=== PATIENT | male | born 1990 | race African-American/Black ===

== ENCOUNTER 2017-06-06 16:11 | Inpatient (IN) | payer SELFPAY ==
[~2017-06-06] VITALS: Ht 180.3 cm; Wt 66.3 kg
[2017-06-06] MEDS ORDERED: HYDROCODONE/ACETAMINOPHEN 5/325MG TABLET PO ONE (22:45)
[2017-06-06 22:55] LABS: CLARITY URINE CLEAR (CLEAR); COLOR URINE YELLOW (YELLOW); GLUCOSE URINE NEGATIVE (NEGATIVE); KETONES URINE NEGATIVE (NEGATIVE); LEUKOCYTE ESTERASE URINE NEGATIVE (NEGATIVE); NITRITE URINE NEGATIVE (NEGATIVE); OCCULT BLOOD URINE NEGATIVE (NEGATIVE); PH URINE 5.5 (4.5-8.0); PROTEIN URINE NEGATIVE (NEGATIVE); SPECIFIC GRAVITY URINE 1.012 (1.005-1.030); UROBILINOGEN URINE 0.2 E.U./dL (0.2-1.0)
[2017-06-06 23:44] LABS: BASOPHILS % 0.6 % (0.0-2.0); EOSINOPHILS % 0.4 % (0.0-5.0); HEMATOCRIT. 39.8 % (42.0-52.0); HEMOGLOBIN. 13.4 g/dL (14.0-18.0); LYMPHOCYTES % 14.6 % (20.0-50.0); MEAN CORPUSCULAR VOLUME 95.4 fL (80.0-94.0); MEAN PLATELET VOLUME 8.9 fl (7.4-10.4); MONOCYTES % 8.2 % (2.0-8.0); NEUTROPHILS % 76.2 % (40.0-76.0); PLATELET 180 x1000/uL (130-400); RED BLOOD CELL COUNT 4.17 mill/uL (4.7-6.1); RED CELL DISTRIBUTION WIDTH 12.3 % (11.6-14.6)
[2017-06-07] MEDS ORDERED: CEFTRIAXONE SODIUM 250 MG/VIAL IM ONE (01:15)
[2017-06-07] MEDS ORDERED: AZITHROMYCIN 500 MG TABLET PO ONE (01:15)
[2017-06-07] MEDS ORDERED: METRONIDAZOLE 500 MG PREMIX 100 ML IV ONE (01:30)
[2017-06-07] MEDS ORDERED: LEVOFLOXACIN 500MG PREMIX 100 ML IV ONE (01:30)
[2017-06-07 02:02] LABS: CHLORIDE 103 mEq/L (98-107)
[2017-06-07 02:10] LABS: CARBON DIOXIDE 27 mEq/L (21-32)
[2017-06-07 06:45] VITALS: BP 100/54
[2017-06-07 08:10] VITALS: BP 100/61
[2017-06-07] MEDS ORDERED: ONDANSETRON HCL 4MG/2ML VIAL IV PRN (09:00)
[2017-06-07] MEDS ORDERED: DOCUSATE SODIUM 100MG CAPSULE PO PRN (09:00)
[2017-06-07] MEDS ORDERED: IPRATROPIUM/ALBUTEROL 0.5-3(2.5)MG/3ML NEB INH PRN (09:00)
[2017-06-07] MEDS ORDERED: ACETAMINOPHEN 650MG SUPP PR PRN (09:00)
[2017-06-07] MEDS ORDERED: MAGNESIUM/ALUMINUM HYDROXIDE/SIMETHICONE 30ML UDC PO PRN (09:00)
[2017-06-07] MEDS ORDERED: GUAIFENESIN 200MG/10ML SUGAR FREE UDC PO PRN (09:00)
[2017-06-07] MEDS ORDERED: ACETAMINOPHEN 650MG/20.3ML UDC GT PRN (09:00)
[2017-06-07] MEDS ORDERED: DIPHENHYDRAMINE 50MG/ML VIAL IV PRN (09:00)
[2017-06-07] MEDS ORDERED: CLONIDINE 0.1MG TABLET PO PRN (09:00)
[2017-06-07] MEDS ORDERED: NA PHOS,M-B/NA PHOS,DI-BA ENEMA 118ML PR PRN (09:00)
[2017-06-07] MEDS: HYDROCODONE/ACETAMINOPHEN 5/325MG TABLET PO PRN ×3 (09:41→17:37)
[2017-06-07] MEDS: ENOXAPARIN 40MG/0.4ML SYR SUBCUT SCH (09:41)
[2017-06-07] MEDS: SODIUM CHLORIDE 0.45% 1,000 ML IV SCH ×2 (10:27→23:30)
[2017-06-07] MEDS: METRONIDAZOLE 500 MG PREMIX 100 ML IV SCH ×2 (11:56→17:03)
[2017-06-07 12:30] VITALS: BP 120/0
[2017-06-07] MEDS: SODIUM CHLORIDE 0.9% INJ 3ML FLUSH IVF SCH ×2 (14:05→20:37)
[2017-06-07] MEDS: MORPHINE SULFATE 2 MG/ML CPJ (NOT FOR IM USE) IV PRN ×2 (14:36→20:38)
[2017-06-07 16:14] VITALS: BP 118/68
[2017-06-07 16:40] LABS: BASOPHILS % 0.5 % (0.0-2.0); EOSINOPHILS % 0.2 % (0.0-5.0); HEMATOCRIT. 41.1 % (42.0-52.0); HEMOGLOBIN. 13.9 g/dL (14.0-18.0); LYMPHOCYTES % 8.8 % (20.0-50.0); MEAN CORPUSCULAR HEMOGLOBIN 32.3 pg (28.0-32.0); MEAN CORPUSCULAR VOLUME 95.3 fL (80.0-94.0); MEAN PLATELET VOLUME 9.5 fl (7.4-10.4); MONOCYTES % 7.8 % (2.0-8.0); NEUTROPHILS % 82.7 % (40.0-76.0); PLATELET 182 x1000/uL (130-400); RED BLOOD CELL COUNT 4.31 mill/uL (4.7-6.1); RED CELL DISTRIBUTION WIDTH 11.8 % (11.6-14.6)
[2017-06-07 16:58] LABS: CARBON DIOXIDE 27 mEq/L (21-32); CHLORIDE 101 mEq/L (98-107); CREATINE KINASE 117 IU/L (39-308); TROPONIN I < 0.02 ng/mL (0.00-0.04)
[2017-06-07 20:00] VITALS: BP 131/79
[2017-06-07 23:30] LABS: CLARITY URINE CLEAR (CLEAR); COLOR URINE YELLOW (YELLOW); GLUCOSE URINE NEGATIVE (NEGATIVE); KETONES URINE TRACE (NEGATIVE); LEUKOCYTE ESTERASE URINE TRACE (NEGATIVE); NITRITE URINE NEGATIVE (NEGATIVE); OCCULT BLOOD URINE NEGATIVE (NEGATIVE); PH URINE 5.5 (4.5-8.0); PROTEIN URINE NEGATIVE (NEGATIVE); SPECIFIC GRAVITY URINE 1.018 (1.005-1.030)
[2017-06-07 23:59] LABS: *AMPHETAMINES SCREEN URINE NEGATIVE (NEGATIVE); *BARBITURATES SCREEN URINE NEGATIVE (NEGATIVE); *BENZODIAZEPINES SCREEN URINE NEGATIVE (NEGATIVE); *COCAINE SCREEN URINE NEGATIVE (NEGATIVE); CANNABINOID URINE SCREEN PRESUMTIVE POSITIVE (NEGATIVE); METHADONE URINE SCREEN NEGATIVE (NEGATIVE); OPIATES URINE SCREEN PRESUMTIVE POSITIVE (NEGATIVE); PHENCYCLIDINE URINE SCREEN NEGATIVE (NEGATIVE)
[2017-06-08] VITALS: BP 122/63
[2017-06-08 00:21] LABS: CREATINE KINASE 119 IU/L (39-308); TROPONIN I < 0.02 ng/mL (0.00-0.04)
[2017-06-08] MEDS: METRONIDAZOLE 500 MG PREMIX 100 ML IV SCH ×2 (00:46→11:05)
[2017-06-08] MEDS ORDERED: LEVOFLOXACIN 500MG PREMIX 100 ML IV SCH (02:00)
[2017-06-08] MEDS: MORPHINE SULFATE 2 MG/ML CPJ (NOT FOR IM USE) IV PRN (03:48)
[2017-06-08] MEDS ORDERED: LIDOCAINE HCL 1% 20ML VIAL (Pyxis) INJ INFIL NR (05:15)
[2017-06-08] MEDS: SODIUM CHLORIDE 0.9% INJ 3ML FLUSH IVF SCH (06:26)
[2017-06-08] MEDS ORDERED: DIATR MEGLU/DIATRIZOATE SOLN 30ML PO SCH (06:45)
[2017-06-08 08:00] VITALS: BP 135/96
[2017-06-08] MEDS: MORPHINE SULFATE 4 MG/ML CPJ (NOT FOR IM USE) IV PRN ×2 (08:20→13:03)
[2017-06-08] MEDS: ENOXAPARIN 40MG/0.4ML SYR SUBCUT SCH (08:23)
[2017-06-08 08:57] LABS: HEMATOCRIT. 44.9 % (42.0-52.0); HEMOGLOBIN. 15.2 g/dL (14.0-18.0); MEAN CORPUSCULAR HEMOGLOBIN 32.2 pg (28.0-32.0); MEAN CORPUSCULAR VOLUME 95.1 fL (80.0-94.0); MEAN PLATELET VOLUME 9.7 fl (7.4-10.4); PLATELET 208 x1000/uL (130-400); RED BLOOD CELL COUNT 4.72 mill/uL (4.7-6.1); RED CELL DISTRIBUTION WIDTH 12.1 % (11.6-14.6)
[2017-06-08 09:21] LABS: CARBON DIOXIDE 26 mEq/L (21-32); CHLORIDE 99 mEq/L (98-107); HDL CHOLESTEROL 59 mg/dL (40-59); LDL CHOLESTEROL 82 mg/dL (5-100)
[2017-06-08] MEDS ORDERED: METOCLOPRAMIDE HCL 10MG/2ML VIAL IV PRN (09:45)
[2017-06-08] MEDS ORDERED: DIATR MEGLU/DIATRIZOATE SOLN 30ML PO NR (09:45)
[2017-06-08 09:49] LABS: PLATELET ESTIMATE NORMAL
[2017-06-08] MEDS ORDERED: SODIUM CHLORIDE 0.9% 10ML VIAL ONE (11:51)
[2017-06-08] MEDS ORDERED: IOHEXOL-300 100 ML BOTTLE ONE (11:51)
[2017-06-08 13:03] VITALS: BP 117/51
== END 2017-06-08 16:30 | disposition left against medical advice (07) | DRG 254 ==
LOC: ER 16:12 → 5WST 06-07 02:11 → EDBEDREQ 06-07 02:15 → ENRESERV 06-07 04:16
PROVIDERS: ADMIT Family Medicine; ATTEND Family Medicine
DX: K61.0 Anal abscess (principal); E86.0 Dehydration; N41.9 Inflammatory disease of prostate, unspecified; K62.89 Other specified diseases of anus and rectum; D64.9 Anemia, unspecified; Z53.21 Procedure and treatment not carried out due to patient leaving prior to being seen by health care provider
CPT/HCPCS: 36415; 72192; 74177; 76857; 80053; 80061; 80305; 81001; 81003; 82550; 84484; 85025; 87040; 96365; 96366; 96368; 99285; A4216; J0696; J1650; J1956; J2270; J2405; J2765; J3490; Q9963; Q9967

== ENCOUNTER 2017-06-12 09:02 | Inpatient (IN) | payer MEDICAID, OTHER ==
[~2017-06-12] VITALS: Ht 182.9 cm; Wt 77.1 kg
[2017-06-12] MEDS ORDERED: SODIUM CHLORIDE 0.9% 1,000 ML IV ONE (11:04)
[2017-06-12] MEDS ORDERED: MORPHINE SULFATE 4 MG/ML CPJ (NOT FOR IM USE) IV STA (11:04)
[2017-06-12] MEDS ORDERED: ONDANSETRON HCL 4MG/2ML VIAL IV STA (11:04)
[2017-06-12 11:52] LABS: HEMATOCRIT. 42.2 % (42.0-52.0); HEMOGLOBIN. 13.8 g/dL (14.0-18.0); MEAN CORPUSCULAR HEMOGLOBIN 31.1 pg (28.0-32.0); MEAN CORPUSCULAR VOLUME 95.1 fL (80.0-94.0); MEAN PLATELET VOLUME 9.1 fl (7.4-10.4); PLATELET 245 x1000/uL (130-400); RED BLOOD CELL COUNT 4.44 mill/uL (4.7-6.1); RED CELL DISTRIBUTION WIDTH 12.2 % (11.6-14.6)
[2017-06-12 12:02] LABS: INR 1.3; PROTHROMBIN TIME 13.4 sec (9.4-11.6)
[2017-06-12 12:07] LABS: CARBON DIOXIDE 28 mEq/L (21-32); CHLORIDE 96 mEq/L (98-107)
[2017-06-12 12:48] LABS: CLARITY URINE CLEAR (CLEAR); COLOR URINE YELLOW (YELLOW); GLUCOSE URINE NEGATIVE (NEGATIVE); KETONES URINE NEGATIVE (NEGATIVE); LEUKOCYTE ESTERASE URINE TRACE (NEGATIVE); NITRITE URINE NEGATIVE (NEGATIVE); OCCULT BLOOD URINE NEGATIVE (NEGATIVE); PROTEIN URINE 1+ (NEGATIVE); SPECIFIC GRAVITY URINE 1.027 (1.005-1.030); UROBILINOGEN URINE 0.2 E.U./dL (0.2-1.0)
[2017-06-12 13:21] LABS: PLATELET ESTIMATE NORMAL
[2017-06-12] MEDS ORDERED: IOHEXOL-300 100 ML BOTTLE ONE (13:57)
[2017-06-12] MEDS ORDERED: SODIUM CHLORIDE 0.9% 10ML VIAL ONE (13:57)
[2017-06-12] MEDS ORDERED: ACETAMINOPHEN 325MG TABLET PO PRN (18:30)
[2017-06-12] MEDS ORDERED: MORPHINE SULFATE 4 MG/ML CPJ (NOT FOR IM USE) IV NR (18:30)
[2017-06-13] VITALS: BP 130/81
[2017-06-13] MEDS ORDERED: CLONIDINE 0.1MG TABLET PO PRN (00:45)
[2017-06-13] MEDS ORDERED: ONDANSETRON HCL 4MG/2ML VIAL IV PRN (00:45)
[2017-06-13] MEDS ORDERED: IPRATROPIUM/ALBUTEROL 0.5-3(2.5)MG/3ML NEB INH PRN (00:45)
[2017-06-13] MEDS ORDERED: HYDROMORPHONE HCL/PF 2MG/ML CPJ IV PRN (00:45)
[2017-06-13] MEDS ORDERED: HYDROCODONE/ACETAMINOPHEN 5/325MG TABLET PO PRN (00:45)
[2017-06-13 01:08] VITALS: BP 130/81
[2017-06-13] MEDS: PIPERACILLIN/TAZ 3.375G PREMIX 50 ML IV SCH ×2 (03:00→22:17)
[2017-06-13] MEDS ORDERED: VANCOMYCIN 1500MG in DEXTROSE 5% WATER 250ML IV SCH (03:00)
[2017-06-13 08:00] VITALS: BP 125/88
[2017-06-13 12:00] VITALS: BP_SYST 128
[2017-06-13] MEDS: VANCOMYCIN 1500MG in DEXTROSE 5% WATER 250ML IV SCH ×2 (13:34→22:24)
[2017-06-13 16:00] VITALS: BP 103/66
[2017-06-13 20:00] VITALS: BP 115/60
[2017-06-14] VITALS: BP 126/62
[2017-06-14 04:00] VITALS: BP 112/61
[2017-06-14 05:13] LABS: HEMATOCRIT. 38.1 % (42.0-52.0); HEMOGLOBIN. 12.7 g/dL (14.0-18.0); MEAN CORPUSCULAR HEMOGLOBIN 31.7 pg (28.0-32.0); MEAN CORPUSCULAR VOLUME 95.4 fL (80.0-94.0); MEAN PLATELET VOLUME 9.2 fl (7.4-10.4); PLATELET 297 x1000/uL (130-400); RED CELL DISTRIBUTION WIDTH 12.2 % (11.6-14.6)
[2017-06-14 06:04] LABS: CARBON DIOXIDE 29 mEq/L (21-32); CHLORIDE 102 mEq/L (98-107); VANCOMYCIN TROUGH 15.2 ug/mL (5.0-10.0)
[2017-06-14] MEDS: VANCOMYCIN 1500MG in DEXTROSE 5% WATER 250ML IV SCH (07:02)
[2017-06-14] MEDS: PIPERACILLIN/TAZ 3.375G PREMIX 50 ML IV SCH ×3 (07:02→21:35)
[2017-06-14 08:00] VITALS: BP 104/71
[2017-06-14 12:00] VITALS: BP 105/55
[2017-06-14 13:33] LABS: PLATELET ESTIMATE NORMAL
[2017-06-14 16:00] VITALS: BP 110/61
[2017-06-14] MEDS: VANCOMYCIN 2,000 MG in DEXT 5% WATER 500 ML IV SCH (16:22)
[2017-06-14 20:00] VITALS: BP 113/58
[2017-06-15] VITALS: BP 117/66
[2017-06-15] MEDS: VANCOMYCIN 2,000 MG in DEXT 5% WATER 500 ML IV SCH ×2 (00:21→07:34)
[2017-06-15 04:00] VITALS: BP 120/65
[2017-06-15] MEDS: PIPERACILLIN/TAZ 3.375G PREMIX 50 ML IV SCH ×2 (06:10→14:51)
[2017-06-15 07:49] LABS: CARBON DIOXIDE 23 mEq/L (21-32); CHLORIDE 106 mEq/L (98-107)
[2017-06-15 08:00] VITALS: BP 116/72
[2017-06-15] MEDS ORDERED: BACITRACIN 50,000 UNITS/VIAL ONE (08:13)
[2017-06-15] MEDS ORDERED: NORMAL SALINE 0.9% 10 ML SYR ONE (08:13)
[2017-06-15] MEDS ORDERED: BUPIVACAINE HCL 0.5% (5MG/ML) 50ML ONE (08:13)
[2017-06-15] MEDS ORDERED: ONDANSETRON HCL 4MG/2ML VIAL IV PRN ×2 (08:45)
[2017-06-15] MEDS ORDERED: MEPERIDINE HCL/PF 25MG/ML CPJ IV PRN (08:45)
[2017-06-15] MEDS ORDERED: LABETALOL HCL 20MG/4ML CARPUJECT IV PRN (08:45)
[2017-06-15] MEDS ORDERED: MORPHINE SULFATE 4 MG/ML CPJ (NOT FOR IM USE) IV PRN ×2 (08:45)
[2017-06-15] MEDS ORDERED: HYDROCODONE/ACETAMINOPHEN 5/325MG TABLET PO PRN ×2 (08:45)
[2017-06-15] MEDS: HYDROMORPHONE HCL/PF 2MG/ML CPJ IV PRN ×5 (09:20→09:46)
[2017-06-15] MEDS ORDERED: HYDROMORPHONE HCL/PF 2MG/ML CPJ IV PRN (10:00)
[2017-06-15 12:00] VITALS: BP 147/88
[2017-06-15 16:00] VITALS: BP 142/81
[2017-06-15] MEDS: DEXT 5%/0.45% NACL KCL 20MEQ/L 1,000 ML IV SCH (17:16)
[2017-06-15 20:00] VITALS: BP 122/76
[2017-06-16] VITALS: BP 120/74
[2017-06-16] MEDS: DEXT 5%/0.45% NACL KCL 20MEQ/L 1,000 ML IV SCH ×3 (00:46→13:42)
[2017-06-16] MEDS: PIPERACILLIN/TAZ 3.375G PREMIX 50 ML IV SCH ×4 (00:46→22:33)
[2017-06-16 04:00] VITALS: BP 115/80
[2017-06-16 08:00] VITALS: BP 121/70
[2017-06-16 12:00] VITALS: BP 128/80
[2017-06-16] MEDS: VANCOMYCIN 1250MG in DEXTROSE 5% WATER 250ML IV SCH (13:43)
[2017-06-16 16:00] VITALS: BP 130/70
[2017-06-16 20:00] VITALS: BP 140/95
[2017-06-17] VITALS: BP 136/82
[2017-06-17] MEDS: VANCOMYCIN 1250MG in DEXTROSE 5% WATER 250ML IV SCH (01:12)
[2017-06-17] MEDS: DEXT 5%/0.45% NACL KCL 20MEQ/L 1,000 ML IV SCH (03:49)
[2017-06-17 04:00] VITALS: BP 111/71
[2017-06-17] MEDS: PIPERACILLIN/TAZ 3.375G PREMIX 50 ML IV SCH (06:13)
[2017-06-17 08:00] VITALS: BP 108/77
[2017-06-17 12:00] VITALS: BP 111/74
[2017-06-17 13:19] VITALS: BP 102/68
== END 2017-06-17 13:45 | disposition home or self-care (01) | DRG 223 ==
LOC: ER 09:27 → 6EST 13:17 → ENRESERV 19:26 → 6EST 23:56
PROVIDERS: ADMIT Hospitalist; ATTEND Hospitalist
PROC: 0D9P0ZZ Drainage of Rectum, Open Approach (ICD-10-PCS; principal; 2017-06-15 08:00)
DX: K61.1 Rectal abscess (principal); R65.10 Systemic inflammatory response syndrome (SIRS) of non-infectious origin without acute organ dysfunction; D72.829 Elevated white blood cell count, unspecified; F12.90 Cannabis use, unspecified, uncomplicated; F17.200 Nicotine dependence, unspecified, uncomplicated; K62.89 Other specified diseases of anus and rectum
CPT/HCPCS: 36415; 74177; 80053; 80202; 81001; 83605; 85025; 85610; 85730; 87040; 87070; 87075; 87077; 87186; 87205; 93970; 96361; 96374; 96375; 96376; 99285; A4216; J1170; J2175; J2270; J2405; J2543; J3370; J3490; J7030; J7040; J7060; Q9967

== ENCOUNTER 2018-07-27 15:46 | Emergency (ER) | payer SELFPAY ==
[~2018-07-27] VITALS: Ht 180.3 cm; Wt 75.0 kg
[2018-07-27 15:56] VITALS: BP 128/79
== END 2018-07-27 21:41 | disposition left against medical advice (07) ==
LOC: ER 15:46
DX: S91.001D Unspecified open wound, right ankle, subsequent encounter (principal); R58 Hemorrhage, not elsewhere classified; F12.10 Cannabis abuse, uncomplicated; W32.0XXD Accidental handgun discharge, subsequent encounter
CPT/HCPCS: 99281

== ENCOUNTER 2018-08-08 17:23 | Emergency (ER) | payer MEDICAID ==
[~2018-08-08] VITALS: Ht 180.3 cm; Wt 73.0 kg
[2018-08-08] MEDS ORDERED: KETOROLAC 60MG/2ML VIAL IM ONE (22:15)
[2018-08-08] MEDS ORDERED: CEPHALEXIN 250MG CAPSULE PO ONE (23:00)
[2018-08-08] MEDS ORDERED: IBUPROFEN 600MG TABLET PO ONE (23:00)
[2018-08-08 23:59] VITALS: BP 146/98
== END 2018-08-09 00:05 | disposition home or self-care (01) ==
LOC: ER 17:23
DX: L03.115 Cellulitis of right lower limb (principal); F12.10 Cannabis abuse, uncomplicated; Z98.890 Other specified postprocedural states
CPT/HCPCS: 29515; 99283; J1885

== ENCOUNTER 2018-08-20 12:52 | Emergency (ER) | payer MEDICAID ==
[~2018-08-20] VITALS: Ht 180.3 cm; Wt 73.0 kg
[2018-08-20] MEDS ORDERED: IBUPROFEN 600MG TABLET PO ONE (16:15)
[2018-08-20 16:51] VITALS: BP 125/88
== END 2018-08-20 16:58 | disposition home or self-care (01) ==
LOC: ER 12:52
DX: Z48.00 Encounter for change or removal of nonsurgical wound dressing (principal); Z76.0 Encounter for issue of repeat prescription
CPT/HCPCS: 99282; 99283

== ENCOUNTER 2023-12-14 12:23 | Emergency (ER) | payer SELFPAY ==
[~2023-12-14] VITALS: Ht 180.3 cm; Wt 77.0 kg
[2023-12-14 12:31] VITALS: O2SAT 100
[2023-12-14] MEDS ORDERED: NEOM28.43 TP (13:41)
[2023-12-14] MEDS ORDERED: IBUP-2028 MT (13:42)
[2023-12-14 14:55] VITALS: BP 132/82; PULSE 83; RESP 18; TEMP 97.8
== END 2023-12-14 14:58 | disposition home or self-care (01) ==
LOC: ER 12:23
DX: S60.041A Contusion of right ring finger without damage to nail, initial encounter (principal); F12.90 Cannabis use, unspecified, uncomplicated; Z98.890 Other specified postprocedural states; X58.XXXA Exposure to other specified factors, initial encounter; Y93.89 Activity, other specified; Y92.89 Other specified places as the place of occurrence of the external cause; Y99.8 Other external cause status
CPT/HCPCS: 73130; 99283